=== PATIENT | female | born 1965 | race Caucasian/White ===

== ENCOUNTER 2019-06-27 01:23 | Day surgery (SDC) | payer OTHER, SELFPAY ==
[2019-06-20 15:46] VITALS: BMI 26.5
[2019-06-27 08:15] VITALS: BP 105/68; PULSE 76; RESP 16; TEMP 36.1; O2SAT 98
[2019-06-27] MEDS: LACTATED RINGERS 1,000 ML 150 ML IV CONT (08:20)
--- NOTE | 2019-06-27 08:57 | WPDANESEPPF ---
Anes - Initial Pre Proc Eval Procedure: Operation Date: 06/27/19 09:00 Proposed Procedures p Esophagogastroduodenoscopy & Screening Colonoscopy - Tommy Corral MD Date/Time: 06/27/19 08:57 Surgeon: Tommy Corral MD Pre Op Diagnosis: Neoplasm Screening/ Dysphagia Patient Data Age: 53 Gender: F Height: 5 ft 3 in Weight: 64.7 kg Last Vital Signs Temp 97.0 F L 06/27/19 08:15 Pulse 76 06/27/19 08:15 Resp 16 06/27/19 08:15 BP 105/68 06/27/19 08:15 Pulse Ox 98 06/27/19 08:15 Allergies Allergy/AdvReac Type Severity Reaction Status Date / Time No Known Allergies Allergy Unknown Verified 06/27/19 08:14 Home Medications Medication Instructions Recorded Confirmed Type PNV cmb#95-ferrous fumarate-FA 1 tablet PO DAILY 06/20/19 06/20/19 History [] Patient hx anesthesia problems: none Family hx anesthesia problems: none PMFSH Past Medical History Medical History (Updated 06/27/19 @ 08:56 by Dillon Brewer MD) Healthy adult Social History Social History (Updated 06/27/19 @ 08:57 by Dillon Brewer MD) Smoking status: Never smoker Alcohol intake: current Drinks per week: 7 Anes - Eval Final PreProcedure Day of Procedure 06/27/19 08:57 Patient weight: normal Heart: regular rate and rhythm Lungs: clear to auscultation Airway: Mallampati scale class 1 Neurological: alert and oriented Last oral intake: >/= 8 hours ASA classification: II Emergent: no Anesthetic plan: proceed Anesthesia type and monitoring: general GIVS and standard monitoring Informed Consent: The patient's anesthetic plan and its attendant risks and benefits were discussed with the patient/family/POA. Questions were solicited and answers provided to the satisfaction of the patient/family/POA.
[2019-06-27] MEDS: BENZOCAINE (*SP) 60 ML SPRAY CAN (HURRICAINE) 1 SPRAY MUCOUS MEM (09:09)
--- NOTE | 2019-06-27 09:31 | P.CONGI_ITS ---
Assessment and Plan Additional Plan This is a 53-year-old white female patient seen in evaluation at the request of Dr. Vicente. Operation has episodes of difficulty swallowing occurs almost weekly. She notices that for many years food will catch in her throat. Especially large pills. She denies any heartburn. She denies any bleeding. Her weight has remained stable. She has frequent episodes of gas and belching. Past medical history noncontributory. Currently on no medications. No known medical allergies. Family history reveals mother had lung cancer brother had lung cancer. There is no history of colon or rectal disease within the family. Physical exam reveals her to be alert. Oriented x3. HEENT exam unremarkable. Lungs are clear to auscultation and percussion. Heart is without murmur or extra sounds. Abdominal exam bowel sounds are present soft nontender with no hepatosplenomegaly. Digital external rectal exam is normal. Impression 1. Dysphagia. Etiology unclear. Somewhat suggestive of esophageal narrowing. Plan is for EGD. 2. Neoplasia screening. Plan is for colonoscopy because of her age. Plan is to proceed with both colonoscopy an EGD as stated. further recommendations will be given after endoscopy. GI Consult Note Consult date/time: 06/27/19 09:31 HPI: Leanne Rosa is a 53 year old female [facility] Past Medical History Medical History (Updated 06/27/19 @ 08:56 by Dillon Brewer MD) Healthy adult Social History Social History (Updated 06/27/19 @ 08:57 by Dillon Brewer MD) Smoking status: Never smoker Alcohol intake: current Drinks per week: 7 Meds Home Medications and Allergies Home Medications Medication Instructions Recorded Confirmed Type PNV cmb#95-ferrous fumarate-FA 1 tablet PO DAILY 06/20/19 06/20/19 History [] Allergies Allergy/AdvReac Type Severity Reaction Status Date / Time No Known Allergies Allergy Unknown Verified 06/27/19 08:14 Vital Signs Vital Signs - 24 hr 06/27/19 08:15 Temperature 36.1 C L Pulse Rate 76 Respiratory Rate 16 Blood Pressure 105/68 Pulse Oximetry 98
[2019-06-27 09:35] VITALS: BP 102/59; PULSE 74; RESP 16; O2SAT 98
[2019-06-27 09:45] VITALS: BP 111/71; PULSE 69; RESP 16; O2SAT 98
[2019-06-27 09:55] VITALS: BP 115/75; PULSE 65; RESP 16; O2SAT 98
== END 2019-06-27 10:20 | disposition home or self-care (01) ==
PROVIDERS: PCP Family Medicine; Visit Provider Internal Medicine Gastroenterology
PROC: 0DJ08ZZ Inspection of Upper Intestinal Tract, Via Natural or Artificial Opening Endoscopic (ICD-10-PCS; CPT 43235; principal; 2019-06-27 09:00)
DX: R13.10 Dysphagia, unspecified (principal); Z12.11 Encounter for screening for malignant neoplasm of colon; K64.8 Other hemorrhoids
CPT/HCPCS: 45378; 43450; 43235; J2704; J7120

== ENCOUNTER → 2020-04-01 13:01 | Outpatient (CLI) | payer OTHER, SELFPAY ==
--- NOTE | ~2020-04-01 | XR_ITS ---
XR lumbar spine 2-3V DATE: 04/01/2020 13:43 INDICATION: Lumbar back pain TECHNIQUE: Standing AP, lateral and coned lateral lumbosacral views COMPARISON: None FINDINGS: Mild dextro scoliosis of the thoracolumbar spine. The lumbar pedicles are intact. No fracture or bone destruction or spondylolisthesis. Lumbar and lumb osacral interspaces appear relatively well preserved. Moderate osteopenia. The sacroiliac joints appear normal. There is a fairly prominent amount of fecal material within the colon. Approximately 11.7 x 19 mm mot tled calcifications overlying the right midabdomen IMPRESSION: Mild scoliosis Moderate osteopenia. Reviewed, dictated and finalized at location B. AN OFFICER
--- NOTE | ~2020-04-01 | XR_ITS ---
XR_CERV2-3V_CR DATE: 04/01/2020 13:43 INDICATION: Neck pain TECHNIQUE: AP, open-mouth, odontoid, lateral and swimmer views COMPARISON: None FINDINGS: . C1 and C2 are normally aligned and the odontoid process is intact. There is minimal anterolisthesis and slight loss of disc space height at C4-5. Otherwise no fracture or dislocation, locked facet or prevertebral soft tissue swelling. IMPRESSION: Minimal anterolisthesis and slight loss of disc space height at C4-5 Reviewed, dictated and finalized at Location A. Reviewed, dictated and finalized at location B. 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
--- NOTE | ~2020-04-01 | XR_ITS ---
XR thoracic spine 2V DATE: 04/01/2020 13:43 INDICATION: Thoracic back pain TECHNIQUE: AP, lateral, swimmer views COMPARISON: 04/01/2020 cervical spine FINDINGS: Mild levoscoliosis of the thoracic spine. No fracture or dislocation or bone destruction. The thoracic pedicles are intact. No paraspinal soft tissue thickening. Thoracic interspaces appear intact. IMPRESSION: Mild levoscoliosis Reviewed, dictated and finalized at location B. AGE WORKER IMPRESSION: Mild levoscoliosis
== END ==
PROVIDERS: PCP Family Medicine; Visit Provider Chiropractor
DX: M54.2 Cervicalgia (principal); M54.6 Pain in thoracic spine; M54.5 Low back pain; M85.88 Other specified disorders of bone density and structure, other site; M41.86 Other forms of scoliosis, lumbar region; M43.12 Spondylolisthesis, cervical region
CPT/HCPCS: 72040; 72070; 72100

== ENCOUNTER → 2020-04-22 07:53 | Outpatient (CLI) | payer OTHER, SELFPAY ==
--- NOTE | ~2020-04-22 | US_ITS ---
US abdomen complete DATE: 04/22/2020 08:23 INDICATION: Abdominal pain TECHNIQUE: Real-time imaging of the complete abdomen, Doppler analysis COMPARISON: None FINDINGS: There are multiple mobile filling defects of the gallbladder with shadowing, consistent wit h cholelithiasis. Gallbladder wall thickness is within normal range. No pericholecystic fluid collect ion is detected. Negative sonographic Aaron's sign. The common bile duct measures 3.8 mm, within normal limits. No hepatic or pancreatic space-occupying mass lesion is detected. Normal hepatopedal portal venous fl ow direction. Normal splenic size. The right kidney is not visualized. The left kidney measures 12.2 cm. No left renal mass lesion or hy dronephrosis. The inferior vena cava is unremarkable. Normal caliber of the abdominal aorta. IMPRESSION: Cholelithiasis. No right kidney is detected. Reviewed, dictated and finalized at Location A. Reviewed, dictated and finalized at location A. FINISHER
== END ==
PROVIDERS: PCP Family Medicine; Visit Provider Family Medicine
DX: R10.9 Unspecified abdominal pain (principal); N20.0 Calculus of kidney
CPT/HCPCS: 76700

== ENCOUNTER 2020-05-12 16:38 | Outpatient (CLI) | payer OTHER, SELFPAY ==
--- NOTE | ~2020-05-12 | US_ITS ---
EXAMINATION: US venous doppler LE RT DATE: 05/12/2020 17:17 INDICATION: Right lower limb pain TECHNIQUE: Mcclelland scale images without and with compression and Doppler images of the right lower extre mity veins were obtained. COMPARISON: None FINDINGS: The right common femoral vein, profunda femoral vein, femoral vein, popliteal vein, peronea l trunk, posterior tibial veins, and greater saphenous vein are patent. There is thrombosis of the le sser saphenous and gastrocnemius veins, superficial veins. IMPRESSION: 1. Patent right lower extremity veins. No evidence of deep venous thrombosis. Superficial venous thro mbosis of the lesser saphenous and gastrocnemius veins. Reviewed, dictated and finalized at location A. ER LAP TENDER IMPRESSION: 1. Patent right lower extremity veins. No evidence of deep venous thrombosis. S uperficial venous thrombosis of the lesser saphenous and gastrocnemius veins.
== END 2020-05-12 16:39 | disposition home or self-care (01) ==
LOC: ANHIMG 16:46
PROVIDERS: PCP Family Medicine; Visit Provider Family Medicine
DX: M79.661 Pain in right lower leg (principal); I82.811 Embolism and thrombosis of superficial veins of right lower extremity; I82.461 Acute embolism and thrombosis of right calf muscular vein
CPT/HCPCS: 93971

== ENCOUNTER → 2020-07-28 13:24 | Outpatient (CLI) | payer OTHER, SELFPAY ==
--- NOTE | ~2020-07-28 | DEXA_ITS ---
Bone Density Report Name: Leanne Rosa Age: 54 Sex: Female Ethnicity: White Date of : 1965 Indication: postmenopausal; screening for osteoporosis; Referring Provider: DUYEN CORMIER Study: Bone densitometry was performed. Exam Date: July 28, 2020 Accession number: [id number] Bone Density: Region BMD T-score Z-score Classification AP Spine (L1-L4) 0.991 -0.5 0.6 Normal Femoral Neck (Left) 0.710 -1.3 -0.2 Osteopenia Total Hip (Left) 0.893 -0.4 0.3 Normal Femoral Neck (Right) 0.634 -1.9 -0.8 Osteopenia Total Hip (Right) 0.822 -1.0 -0.3 Normal Total Hip Mean 0.858 -0.7 0.0 Normal World Health Organization criteria for BMD impression classify patients as: Normal (T-score at or above -1.0), Osteopenia (T-score between -1.0 and -2.5), or Osteoporosis (T-score at or below -2.5). 10-year Fracture Risk(1): Major Osteoporotic Fracture 9.6% Hip Fracture 1.4% Reported Risk Factors: [place] (), Neck BMD=0.634, BMI=26.3, alcohol use (1) FRAX(R) Version 3.08. Fracture probability calculated for an untreated patient. Fracture probability may be lower if the patient has received treatment. Clinical Information Provided by Patient: Has 3 or more alcoholic drinks per day Patient maximum height was 62.5 Menopause Age: 52 No regular weight bearing exercise Does not regularly consume dairy products Drinks caffeinated beverages Onset of menses at age 15.5 Number of children 2 Impression: The patient has low bone mass, based on the Right Femoral Neck T-score. The patient has an estimated ten-year risk of hip fracture of 1.4% and an estimated ten-year risk of major fracture of 9.6%, based on the WHO FRAX algorithm. The patient has risk factors, including: excessive alcohol use. Discussion: BONE DENSITY IS LOW AT ONE OR MORE SKELETAL SITES. This patient's lowest T-score is low at one or more skeletal sites. It meets the World Health Organization's (WHO) criteria for ?low bone mass? (T-score between -1.0 and -2.5). The patient's 10-year risk of fracture as calculated by FRAX is less than the threshold where pharmacological therapy is recommended by the National Osteoporosis Foundation (NOF). However, all treatment decisions require clinical judgment and consideration of individual patient factors, including patient preferences, comorbidities, previous drug use, risk factors not captured in the FRAX model (e.g., frailty, falls, vitamin D deficiency, increased bone turnover, interval significant decline in bone density) and possible under or overestimation of fracture risk by FRAX. The patient should follow a healthful lifestyle (good nutrition with adequate calcium and vitamin D, and appropriate weight-bearing exercise). Follow-Up: Consider repeating this study in 2 to 3 years to reassess this patie
--- NOTE | ~2020-07-28 | MM_ITS ---
EXAMINATION: MM screening [facility] BI w layton HISTORY: Screening TECHNIQUE: Craniocaudal and mediolateral oblique 3-D tomosynthesis images were obtained and synthetic 2-D images were generated. CAD analysis was submitted and interpreted. COMPARISON: 12/09/2010 BREAST PARENCHYMAL COMPOSITION: There are scattered areas of fibroglandular density. FINDINGS: There is no mammographic evidence for malignancy in the right breast. The left breast conta ins a mass in the upper outer quadrant measuring 7 mm, middle third. IMPRESSION: 1. Left breast mass, upper outer quadrant. 2. Additional mammographic views and possible breast ultrasound are recommended. BI-RADS Category 0: Incomplete: Needs additional imaging evaluation. Reviewed, dictated and finalized at location A. IMPRESSION: 1. Left breast mass, upper outer quadrant. 2. Additional mammographic views and possible breast ultrasound are recommended . BI-RADS Category 0: Incomplete: Needs additional imaging evaluation.
== END ==
PROVIDERS: PCP Internal Medicine; Visit Provider Internal Medicine
DX: Z12.31 Encounter for screening mammogram for malignant neoplasm of breast (principal); Z78.0 Asymptomatic menopausal state; R92.8 Other abnormal and inconclusive findings on diagnostic imaging of breast; M85.852 Other specified disorders of bone density and structure, left thigh; M85.851 Other specified disorders of bone density and structure, right thigh
CPT/HCPCS: 77063; 77067; 77080

== ENCOUNTER → 2020-09-03 08:12 | Outpatient (CLI) | payer OTHER, SELFPAY ==
--- NOTE | ~2020-09-03 | MMUS_ITS ---
EXAMINATION: MM diagnostic junior LT w layton, US breast LT limited HISTORY: Left breast mass on screening mammogram TECHNIQUE: Additional 3-D tomosynthesis images of the left breast were performed and synthetic 2-D im ages were generated. CAD analysis was submitted and interpreted. High resolution limited left breast ultrasound was performed. COMPARISON: 07/28/2020, 07/12/2010 11/01/2007 BREAST PARENCHYMAL COMPOSITION: There are scattered areas of fibroglandular density. FINDINGS: MAMMOGRAPHIC FINDINGS: There is a 7 mm round, obscured, high density mass in the middle third of the upper outer quadrant of the breast at the 2:00 location 9 cm from the nipple. ULTRASOUND: There is a 9 mm oval, circumscribed, parallel, hypoechoic mass with posterior acoustic enhancement an d no internal vascularity at the 1:00 location 6 cm from the nipple. A 3 mm hypoechoic mass is presen t at the 2:00 location 4 cm from the nipple. IMPRESSION: 1. Indeterminate mass at the 1:00 location 6 cm from the nipple. Ultrasound guided biopsy is recommen ded. 2. Possible small cyst at the 2:00 location 4 cm from the nipple. Targeted left breast ultrasound in six months is recommended. BI-RADS category 4, suspicious findings. Reviewed, dictated and finalized at location A. IMPRESSION: 1. Indeterminate mass at the 1:00 location 6 cm from the nipple. Ultrasound stacie ded biopsy is recommended. 2. Possible small cyst at the 2:00 location 4 cm from the nipple. Targeted left breast ultrasound in six months is recommended. BI-RADS category 4, suspicious findings.
== END ==
PROVIDERS: PCP Internal Medicine; Visit Provider Internal Medicine
DX: N63.0 Unspecified lump in unspecified breast (principal); R92.8 Other abnormal and inconclusive findings on diagnostic imaging of breast
CPT/HCPCS: 76642; 77061; 77065; G0279

== ENCOUNTER 2020-09-03 08:59 | Outpatient (CLI) | payer OTHER, SELFPAY ==
[2020-09-03 09:21] LABS: Basophils Absolute Auto 0.1 K/mm3 (0.0-0.1); Basophils Percent Auto 1.2 % (0.2-1.2); Eosinophils Absolute Auto 0.2 K/mm3 (0-0.3); Eosinophils Percent Auto 4.7 % (0-4.4); Hematocrit 40.7 % (37.0-47.0); Hemoglobin 13.1 g/dL (12.0-15.0); Immature Granulocyte Absolute 0.02 K/mm3 (0.00-0.031); Immature Granulocyte Percent A 0.4 % (0-0.5); Lymphocytes Absolute Auto 1.65 K/mm3 (0.9-3.2); Lymphocytes Percent Auto 32.1 % (18.3-44.2); Mean Corpuscular HGB Conc 32.2 g/dl (32-36); Mean Corpuscular Hemoglobin 30.2 pg (26-34); Mean Corpuscular Volume 93.8 fl (80-100); Monocytes Absolute Auto 0.3 K/mm3 (0.1-0.6); Neutrophils Absolute Auto 2.9 K/mm3 (1.3-6.7); Neutrophils Percent Auto 55.6 % (45.5-73.1); Platelet Count Result 251 k/mm3 (150-375); Red Blood Count 4.34 M/mm3 (4.2-5.4); White Blood Count 5.1 K/mm3 (4.5-10.0)
[2020-09-03 09:24] LABS: Add Urine Microscopic? NO; Appearance Urine Clear (Clear); Bilirubin Urine Negative (Negative); Blood Urine Negative (Negative); Color Urine Yellow (Yellow); Glucose Urine UA Negative (Negative); Ketones Urine Negative (Negative); Leukocyte Esterase Ur Negative LEU/UL (NEGATIVE); Nitrate Urine Negative (Negative); Protein Urine Negative (Negative); Specific Grav Ur 1.024 (1.001-1.035); Urobilinogen Urine Negative mg/dL (<2.0)
[2020-09-03 09:39] LABS: Alanine Aminotransferase 11 U/L (4-35); Albumin Level 4.3 g/dL (3.5-5.1); Alkaline Phosphatase 54 U/L (38-126); Anion Gap 0 mmol/L (8-16); Aspartate Amino Transferase 27 U/L (14-36); Bilirubin,Total 0.4 mg/dL (0.2-1.3); Blood Urea Nitrogen 17 mg/dL (7-17); Calcium 8.9 mg/dL (8.4-10.2); Carbon Dioxide 32 mmol/L (22-30); Chloride 108 mmol/L (98-107); Cholesterol 189 mg/dL (0-200); Estimated Glomerular Filt Rate > 60; Glucose 88 mg/dL (65-105); HDL Direct 87 mg/dL; Sodium 140 mmol/L (137-145); Triglycerides 46 mg/dL (<150)
[2020-09-03 09:50] LABS: LDL Cholesterol Direct 70 mg/dL
[2020-09-03 10:13] LABS: Vitamin D 25 Hydroxy 26.2 ng/mL
== END 2020-09-03 09:00 | disposition home or self-care (01) ==
LOC: ANHLAB 09:02
PROVIDERS: PCP Internal Medicine; Visit Provider Internal Medicine
DX: E55.9 Vitamin D deficiency, unspecified (principal); E78.2 Mixed hyperlipidemia; F32.9 Major depressive disorder, single episode, unspecified; F41.9 Anxiety disorder, unspecified; Z78.0 Asymptomatic menopausal state; Z79.899 Other long term (current) drug therapy
CPT/HCPCS: 36415; 80053; 80061; 81003; 82306; 84443; 85025

== ENCOUNTER 2020-09-12 08:17 | Emergency (ER) | payer OTHER, SELFPAY ==
--- NOTE | 2020-09-12 08:21 | ED.GENADULT ---
HPI - General Adult General Chief complaint: Skin/Abscess/Foreign Body Stated complaint: Rash Time Seen by Provider: 09/12/20 08:21 Source: patient Mode of arrival: ambulatory Limitations: no limitations History of Present Illness HPI narrative: 55-year-old female patient presents to the [facility] with complaints of a rash to bilateral arms and right flank that started this morning. Patient states yesterday she was sweeping off the porch and did pull couple weeds. Patient states she woke up today with a rash and states it is itchy. Denies any pain to the area. Denies putting anything on the rash. Denies any chest pain, shortness of breath, swelling or trouble swallowing. Related Data Home Medications Medication Instructions Recorded Confirmed PNV cmb#95-ferrous fumarate-FA 1 tablet PO DAILY 06/20/19 09/12/20 [] aspirin 325 mg tablet 325 mg PO DAILY 06/01/20 09/12/20 multivitamin 1 tablet PO DAILY 06/01/20 09/12/20 Allergies Allergy/AdvReac Type Severity Reaction Status Date / Time No Known Allergies Allergy Unknown Verified 09/12/20 08:24 Review of Systems Review of Systems: Narrative: CONSTITUTIONAL: Denies fever, chills, or sweats. EYES: Denies visual changes, redness, or discharge. ENT: Denies rhinorrhea, congestion, sore throat, or otalgia. CARDIOVASCULAR: Denies chest pain, palpitations, or edema. RESPIRATORY: Denies cough or dyspnea. GASTROINTESTINAL: Denies abdominal pain, nausea, vomiting, or diarrhea. GENITOURINARY: Denies dysuria or hematuria. SKIN: Positive rash with itching to bilateral arms and right flank since this morning MUSCULOSKELETAL: Denies back pain, joint pain, or myalgia. NEUROLOGIC: Denies headache, numbness, or weakness. PSYCHIATRIC: Denies anxiety or depression. [facility] Past Medical History Medical History Healthy adult Social History Social History Smoking status: Never smoker Alcohol intake: current Drinks per week: 7 Comments At the time of my signature I agree with nursing past medical history, surgical, social, and family history. There is no relevant family history pertinent to the presenting complaint. Exam Narrative: Exam Narrative: GENERAL: Well-appearing, well-nourished, and in no acute distress. HEAD: Normocephalic, atraumatic. EYES: PERRLA and EOMI. ENT: Nares clear, no rhinorrhea or epistaxis. Mucous membranes moist. NECK: Supple. No lymphadenopathy CHEST: Clear to auscultation. No respiratory distress. HEART: Regular rate and rhythm. No murmur heard. Normal peripheral pulses. ABDOMEN: Soft, nontender, nondistended, normal active bowel sounds. EXTREMITIES: Normal range of motion. No edema. SKIN: Patient has a rash to bilateral arms and right flank there appears to be a small erythemic papules. No open wounds or drainage at this time. NEURO: No focal deficits. Alert and oriented x3. Course Vital Signs Vital signs: Vital Signs Temperature 36.4 C L 09/12/20 08:26 Pulse Rate 65 09/12/20 08:26 Respiratory Rate 16 09/12/20 08:26 Blood Pressure 124/70 09/12/20 08:26 Pulse Oximetry 100 09/12/20 08:26 Temperature 36.4 C L 09/12/20 08:26 Pulse Rate 65 09/12/20 08:26 Respiratory Rate 16 09/12/20 08:26 Blood Pressure 124/70 09/12/20 08:26 Pulse Oximetry 100 09/12/20 08:26 Vital signs reviewed Medical Decision Making Differential Diagnosis Differential Diagnosis: Differential diagnosis: Contact dermatitis, poison catarina, poison sumac, psoriasis, eczema, allergic reaction, drug reaction, scabies, tinea syphilis, lung disease, viral exanthema, pityriasis, erythema multiforme. Discussed with patient that it does appear that she has some type of contact dermatitis. We will go ahead and discharge her home with a steroid cream to help with the itching also advised her to take some type of antihistamine [id number]
[2020-09-12 08:26] VITALS: BP 124/70; PULSE 65; RESP 16; TEMP 36.4; O2SAT 100
== END 2020-09-12 08:53 | disposition home or self-care (01) ==
PROVIDERS: Emergency Provider Nurse Practitioner Family; PCP Internal Medicine
DX: L25.9 Unspecified contact dermatitis, unspecified cause (principal); Z79.82 Long term (current) use of aspirin
CPT/HCPCS: 99213; G0463

== ENCOUNTER 2021-09-02 07:37 | Outpatient (CLI) | payer OTHER, SELFPAY ==
[2021-09-02 08:07] LABS: Basophils Absolute Auto 0.1 K/mm3 (0.0-0.1); Basophils Percent Auto 1.4 % (0.2-1.2); Eosinophils Absolute Auto 0.3 K/mm3 (0-0.3); Eosinophils Percent Auto 4.4 % (0-4.4); Hematocrit 42.1 % (37.0-47.0); Hemoglobin 13.5 g/dL (12.0-15.0); Immature Granulocyte Absolute 0.02 K/mm3 (0.00-0.031); Immature Granulocyte Percent A 0.3 % (0-0.5); Lymphocytes Absolute Auto 2.19 K/mm3 (0.9-3.2); Lymphocytes Percent Auto 37.1 % (18.3-44.2); Mean Corpuscular HGB Conc 32.1 g/dl (32-36); Mean Corpuscular Hemoglobin 30.3 pg (26-34); Mean Corpuscular Volume 94.4 fl (80-100); Mean Platelet Volume 9.3 fl (7.4-10.4); Monocytes Absolute Auto 0.3 K/mm3 (0.1-0.6); Monocytes Percent Auto 5.8 % (2.6-8.5); Platelet Count Result 233 k/mm3 (150-375); Red Blood Count 4.46 M/mm3 (4.2-5.4); Red Cell Distribution Width 13.4 % (11.5-14.5); White Blood Count 5.9 K/mm3 (4.5-10.0)
[2021-09-02 08:21] LABS: Alanine Aminotransferase 15 U/L (4-35); Albumin Level 4.4 g/dL (3.5-5.1); Alkaline Phosphatase 43 U/L (38-126); Anion Gap 5 mmol/L (8-16); Aspartate Amino Transferase 30 U/L (14-36); Bilirubin,Total 0.2 mg/dL (0.2-1.3); Blood Urea Nitrogen 14 mg/dL (7-17); Calcium 9.3 mg/dL (8.4-10.2); Carbon Dioxide 28 mmol/L (22-30); Chloride 107 mmol/L (98-107); Cholesterol 220 mg/dL (0-200); Estimated Glomerular Filt Rate > 60; Glucose 101 mg/dL (65-110); HDL Direct 77 mg/dL; Potassium 5.2 mmol/L (3.4-5.0); Sodium 140 mmol/L (137-145); Triglycerides 201 mg/dL (<150)
[2021-09-02 08:32] LABS: LDL Cholesterol Direct 80 mg/dL
[2021-09-02 09:01] LABS: Vitamin D 25 Hydroxy 42.4 ng/mL
== END 2021-09-02 07:38 | disposition home or self-care (01) ==
LOC: ANHLAB 07:39
PROVIDERS: PCP Internal Medicine; Visit Provider Internal Medicine
DX: E55.9 Vitamin D deficiency, unspecified (principal); F41.9 Anxiety disorder, unspecified; F32.9 Major depressive disorder, single episode, unspecified; Z00.00 Encounter for general adult medical examination without abnormal findings
CPT/HCPCS: 36415; 80053; 80061; 82306; 84443; 85025

== ENCOUNTER 2022-11-03 08:32 | Outpatient (CLI) | payer OTHER, SELFPAY ==
[2022-11-03 10:53] LABS: Alanine Aminotransferase 22 U/L (6-35); Albumin Level 4.4 g/dL (3.5-5.1); Alkaline Phosphatase 40 U/L (38-126); Anion Gap 2 mmol/L (8-16); Aspartate Amino Transferase 31 U/L (14-36); Bilirubin,Total 0.6 mg/dL (0.2-1.3); Blood Urea Nitrogen 15 mg/dL (7-17); Calcium 8.9 mg/dL (8.4-10.2); Carbon Dioxide 31 mmol/L (22-30); Chloride 108 mmol/L (98-107); Cholesterol 225 mg/dL (0-200); Estimated Glomerular Filt Rate > 60; Glucose 84 mg/dL (65-110); HDL Direct 90 mg/dL; Potassium 4.4 mmol/L (3.4-5.0); Sodium 141 mmol/L (137-145); Triglycerides 55 mg/dL (<150)
[2022-11-03 11:03] LABS: LDL Cholesterol Direct 98 mg/dL
[2022-11-03 13:00] LABS: Vitamin D 25 Hydroxy 42.5 ng/mL
== END 2022-11-03 08:33 | disposition home or self-care (01) ==
PROVIDERS: Visit Provider Nurse Practitioner
DX: E78.5 Hyperlipidemia, unspecified (principal); E55.9 Vitamin D deficiency, unspecified; E78.2 Mixed hyperlipidemia; Z79.899 Other long term (current) drug therapy
CPT/HCPCS: 36415; 80053; 80061; 82306

== ENCOUNTER 2025-01-07 13:35 | Outpatient (CLI) | payer OTHER, SELFPAY ==
--- OUTSIDE RECORDS SUMMARY | 2025-01-07 13:40 | XMS_ITS | Encounter Summary ---
Author Organization [facility] Address [address] [place] [address] Care Team Providers Care Kitchen Cleaner Name Role Phone Unavailable Primary Care Provider Unavailabl e Encounter Details Date Type Department Care Team (Latest Contact Info) Description 12/26/2006 Outpatient Historical [facility] Frankie Vicente MD [address] [place] [phone] Other General Counseling and Advice for Contraceptive Management (Primary Dx) Social History Tobacco Use Types Packs/Day Years Used Date Smoking Tobacco: Never Assessed Comments Unknown Sex and Gender Information Value Date Recorded Sex Assigned at Not on file Legal Sex Female 5:01 AM 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
--- OUTSIDE RECORDS SUMMARY | 2025-01-07 13:40 | XMS_ITS | Clinical Summary ---
Author Organization [facility] Address [address] 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 Gender Identity Not on file Sexual Orientation Not on file Plan of Treatment Health Maintenance Due Date Last Done Comments DTAP/TDAP/TD VACCINES (1 - Tdap) 08/16/1983 HPV/Cotest (21-29) 1985 CERVICAL CANCER SCREENING 1994 HPV/Cotest (30-65) 1994 PAP SMEAR 1994 BREAST CANCER SCREENING 2004 COLORECTAL SCREENING 2009 Colorectal Cancer Screening 2009 FIT-DNA Q 3 years 2009 FIT/FOBT Q 1 year 2009 Flex Sig/CT Colonography Q 5 years 2009 ZOSTER VACCINE (1 of 2) 2014 INFLUENZA VACCINE (#1) 2024 RSV VACCINE (60+ or ) (1 - 1-dose 75+ series) 08/16/2039 HEPATITIS B VACCINES Aged Out No long er eligible based on patient's age to complete this topic
--- OUTSIDE RECORDS SUMMARY | 2025-01-07 13:40 | XMS_ITS | Encounter Summary ---
Author Organization [employer] [facility] Address 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
--- OUTSIDE RECORDS SUMMARY | 2025-01-07 13:40 | XMS_ITS | Clinical Summary ---
Author Organization [facility] Address [address] [place] [id number] Care Team Providers Care Maintenance And Custodian Supervisor Name Role Phone Seng Estrella DO Primary Care Provider [phone] Allergies No known active allergies Medications multivit-min/fe rrous fumarate (MULTI VITAMIN ORAL) Take by mouth Active ergocalciferol, vitamin D2, 50 mcg (2,000 unit) tablet Take by mouth Act abhishek vitamin K2 40 mcg tablet Take by mouth Activ e ascorbic acid (ascorbic acid with ramon hips) 500 mg tablet,chewable Acti ve fluticasone propionate (FLONASE) 50 mcg/actuation nasal spray Administer 2 sprays into each nostril daily 16 g 6 4 Active Active Problems Problem Noted Date Diagnosed Date Chronic cough 11/01/2023 Assessment & Plan (12/29/2023 12:33 PM CDT): This cough continues and she does not have significant problems with sinusitis. Again I think the cough is likely due to reflux more than anything else. She complains of lot of throat clearing in that tends to bother her every night. We talked about allergy testing given her sinus CT scan was negative. She would like to pursue that, Assessment & Plan (11/01/2023 9:21 PM CDT): This could be reflux related and is pretty mild. Considering her renal problems recommended conservative management including dietary management. Epistaxis 11/01/2023 Assessment & Plan (12/29/2023 12:32 PM CDT): Possibly due to dryness but seems to have cleared. We will continue to observe. Assessment & Plan (11/01/2023 9:22 PM CDT): She does have a small vascular lesion in the left side of her nose on the nasal septum. I am recommending conservative management considering she has not had a nosebleed quite awhile. She understands. Phlegm in throat 11/01/2023 Assessment & Plan (12/29/2023 12:34 PM CDT): We are going to pursue allergy testing to see if that may be causing some of this. I also still think that this is probably due to reflux disease. Given her renal status I am not sure I would recommend aggressively treating for reflux and she understands that. We have already talked about it. There may not be much that can be done otherwise. Assessment & Plan (11/01/2023 9:22 PM CDT): This also is probably due to reflux disease. Again I am recommending conservative management. Deviated nasal septum 11/01/2023 Assessment & Plan (12/29/2023 12:35 PM CDT): She has some dryness involving the septum and that might be causing a crust which she coughs up. We talked about that also. I am not recommending any aggressive treatment otherwise. Use moisturization. She understands. Assessment & Plan (11/01/2023 9:21 PM CDT): She does have significant deviation of her nasal septum. I wonder if she may be coughing up across the may be resulting from this nasal septal deformity. I recommended that she try using NeilMed rinse on a regular basis. Let us see how things go during that . Of time and I would like to have her follow-up in about 1 month. If she has continued problems I may recommend a sinus CT scan. Abnormal mammogram of left breast 09/29/2020 Surgical History Surgery Date Site/Laterality Comments BREAST BIOPSY 09/28/2020 Left OTHER SURGICAL HISTORY Blood clot Medical History Medical History Date Comments Depression Allergic rhinitis Anxiety History of blood clots Hepatitis History of kidney problems Nosebleed Cough Deviated septum Family History Medical History Relation Name Comments Lung cancer Brother Lung cancer Mother Relation Name Status Comments Brother Mother Social History Tobacco Use Types Packs/Day Years Used Date Smoking Tobacco: Never Smokeless Tobacco: Never Tobacco Cessation:Counseling Given: Not Answered Comments Unknown Sex and Gender Information Value Date Recorded Sex Assigned at Not on file Legal Sex Female 1:38 AM FIRER AUTOMATIC STOKER Gender Identity Not on file Sexual Orientation Not on file Obstetrics History Last Filed Vital Signs Vital Sign Reading Time Taken Comments Blood Pressure 126/66 06/10/2024 10:05 AM FIRER AUTOMATIC STOKER Pulse 73 06/10/2024 10:05 AM FIRER AUTOMATIC STOKER Temperature 36.8 C (98.2 F) 06/10/2024 10:05 AM FIRER AUTOMATIC STOKER Respiratory Rate 18 06/10/2024 10:05 AM FIRER AUTOMATIC STOKER Oxygen Saturation 99% 06/10/2024 10:05 AM FIRER AUTOMATIC STOKER Inhaled Oxygen Concentration - - Weight 70 kg (154 lb 6.4 oz) 06/10/2024 10:05 AM FIRER AUTOMATIC STOKER Height 157.5 cm (5' 2) 06/10/2024 10:05 AM FIRER AUTOMATIC STOKER Body Mass Index 28.24 06/10/2024 10:05 AM FIRER AUTOMATIC STOKER Plan of Treatment Health Maintenance Due Date Last Done Comments Cervical Cancer Screening 1964 Colon Cancer Screening-Colonoscopy 1964 Depression Screening 1964 Hepatitis C Screening 1964 DTaP/Tdap/Td Vaccine (1 - Tdap) 08/16/1975 Hepatitis B Screening 1982 Regular Well Visit/Exam 18-64 1982 Zoster Vaccine (1 of 2) 2014 Influenza Vaccine (#1) 2025 Breast Cancer Screening-Mammogram 03/04/2025 03/04/2024, 01/05/2023, 10/25/2021 Pneumococcal vaccine <65 Aged Out No longer eligible based on patient's age to complete this topic Procedures Procedure Name Priority Date/Time Associated Diagnosis Comments SCREENING MAMMOGRAM BILATERAL W TYRONE Schedule Routine, Read Routine (OP Routine) 03/04/2024 12:28 PM CDT Screening mammogram, encounter for from Last 3 Months or Most Recently Relevant to Health Maintenance Results * Screening Mammogram Bilateral W [place] (03/04/2024 12:28 PM CDT) Anatomical Region Laterality Modality Breast Bilateral Mammography Narrative 03/05/2024 12:07 PM CDT Mammogram Technique: Bilateral Digital Breast Tomosynthesis, Bilateral C-view 2D Screening mammogram. Views obtained: bilateral craniocaudal and bilateral mediolateral oblique. Computer Aided Detection was performed. Mammogram Findings: The present examination has been compared to prior imaging studies performed at [facility] on 08/07/2006, 10/25/2021 and 01/05/2023. There are scattered areas of fibroglandular density. There is no suspicious abnormality in either breast. Impression: There is no mammographic evidence of malignancy. Annual screening mammography is recommended. OVERALL FINAL ASSESSMENT: BI-RADS CATEGORY 1: Negative. Procedure Note Brittany Kim MD - 03/05/2024 Mammogram Technique: Bilateral Digital Breast Tomosynthesis, Bilateral C-view 2D Screening mammogram. Views obtained: bilateral craniocaudal and bilateral mediolateral oblique. Computer Aided Detection was performed. Mammogram Findings: The present examination has been compared to prior imaging studies performed at [facility] on 08/07/2006, 10/25/2021 and 01/05/2023. There are scattered areas of fibroglandular density. There is no suspicious abnormality in either breast. Impression: There is no mammographic evidence of malignancy. Annual screening mammography is recommended. OVERALL FINAL ASSESSMENT: BI-RADS CATEGORY 1: Negative. us Self Screening Mammogram IMG MAMMO PROCEDURES Fi nal Result from Last 3 Months or Most Recently Relevant to Health [place] [address] [employer] [facility] Care Teams Maintenance And Custodian Supervisor Relationship Specialty Start Date End Date Seng Estrella DO PCP - General Internal Medicine 11/23/22
--- OUTSIDE RECORDS SUMMARY | 2025-01-07 13:40 | XMS_ITS | Encounter Summary ---
Author Organization [email or web address] Address [address] [place] [address] Care Team Providers Care Fiberglass Finisher Name Role Phone Unavailable Primary Care Provider Unavailabl e Encounter Details Date Type Department Care Team (Latest Contact Info) Description 05/31/2007 Outpatient Historical [facility] Frankie Vicente MD [address] [place] [phone] Nat[address] Fam [address]n-Avoid Preg Social History Tobacco Use Types Packs/Day Years Used Date Smoking Tobacco: Never Assessed Comments Unknown Sex and Gender Information Value Date Recorded Sex Assigned at Not on file Legal Sex Female 5:01 AM SAP PROJECT MANAGER Gender Identity Not on file Sexual Orientation Not on file documented as of this encounter Plan of Treatment Not on file documented as of this encounter Visit Diagnoses Diagnosis Counseling and instruction in natural family planning to avoid documented in this encounter
--- OUTSIDE RECORDS SUMMARY | 2025-01-07 13:40 | XMS_ITS | Encounter Summary ---
Author Organization [email or web address] [facility] Address [address] [place] [address] Care Team Providers Care Pelt Inspector Name Role Phone Unavailable Primary Care Provider Unavailabl e Encounter Details Date Type Department Care Team (Late st Contact Info) Description 01/27/2007 Outpatient [facility] Frankie Vicente MD [address] [place] [id number] Social History Tobacco Use Types Packs/Day Years Used Date Smoking Tobacco: Never Assessed Comments Unknown Sex and Gender Information Value Date Recorded Sex Assigned at Not on file Legal Sex Female 5:01 AM SENIOR HEALTH EDUCATOR Gender Identity Not on file Sexual Orientation Not on file documented as of this encounter Plan of Treatment Not on file documented as of this encounter Visit Diagnoses Not on filedocumented in this encounter
--- OUTSIDE RECORDS SUMMARY | 2025-01-07 13:40 | XMS_ITS | Encounter Summary ---
Author Organization [facility] Address [address] [place] [address] Care Team Providers Care Insulation Board Coater Operator Name Role Phone Unavailable Primary Care Provider Unavailabl e Encounter Details Date Type Department Care Team (Latest Contact Info) Description 02/27/2007 Outpatient Historical [facility] Frankie Vicente MD [address] [place] [phone] Other General Counseling and Advice for Contraceptive Management (Primary Dx) Social History Tobacco Use Types Packs/Day Years Used Date Smoking Tobacco: Never Assessed Comments Unknown Sex and Gender Information Value Date Recorded Sex Assigned at Not on file Legal Sex Female 5:01 AM DATA ANALYTICS SPECIALIST Gender Identity Not on file Sexual Orientation Not on file documented as of this encounter Plan of Treatment Not on file documented as of this encounter Visit Diagnoses Diagnosis Other general counseling and advice for contraceptive management- Primary documented in this encounter
[2025-01-07 14:16] LABS: Hematocrit 40.1 % (37.0-47.0); Hemoglobin 12.9 g/dL (12.0-15.0); Mean Corpuscular HGB Conc 32.2 g/dl (32-36); Mean Corpuscular Hemoglobin 29.0 pg (26-34); Mean Corpuscular Volume 90.1 fl (80-100); Platelet Count Result 244 k/mm3 (150-375); Red Blood Count 4.45 M/mm3 (4.2-5.4); White Blood Count 7.0 K/mm3 (4.5-10.0)
[2025-01-07 14:29] LABS: Alanine Aminotransferase 13 U/L (6-35); Albumin Level 4.6 g/dL (3.5-5.1); Alkaline Phosphatase 46 U/L (38-126); Anion Gap 9 mmol/L (4-12); Aspartate Amino Transferase 27 U/L (14-36); Bilirubin,Total 0.5 mg/dL (0.2-1.3); Blood Urea Nitrogen 17 mg/dL (7-17); Calcium 9.3 mg/dL (8.4-10.2); Carbon Dioxide 26 mmol/L (22-30); Chloride 105 mmol/L (98-107); Cholesterol 218 mg/dL (0-200); Estimated Glomerular Filt Rate > 60; Glucose 104 mg/dL (65-110); HDL Direct 83 mg/dL; Potassium 4.1 mmol/L (3.4-5.0); Sodium 140 mmol/L (137-145); Total Protein 7.9 g/dL (6.3-8.2); Triglycerides 115 mg/dL (<150)
[2025-01-07 15:05] LABS: Thyroid Stimulating Hormone 1.390 uIU/mL (0.465-4.680)
== END 2025-01-07 13:36 | disposition home or self-care (01) ==
LOC: ANHLAB 13:37
PROVIDERS: PCP Internal Medicine; Visit Provider Nurse Practitioner
DX: Z00.00 Encounter for general adult medical examination without abnormal findings (principal); E55.9 Vitamin D deficiency, unspecified
CPT/HCPCS: 36415; 80053; 80061; 82306; 84443; 85027

== ENCOUNTER 2025-04-22 13:31 | Outpatient (CLI) | payer OTHER, SELFPAY ==
[2025-04-22 13:58] LABS: Add Urine Microscopic? YES; Appearance Urine Cloudy (Clear); Glucose Urine UA Negative (Negative); Leukocyte Esterase Ur 3+ LEU/UL (Negative); Nitrate Urine Negative (Negative); Non Pathogenic Casts 0-2; Specific Grav Ur 1.015 (1.001-1.035)
== END 2025-04-22 13:32 | disposition home or self-care (01) ==
LOC: ANHLAB 13:32
PROVIDERS: PCP Internal Medicine; Visit Provider Internal Medicine
DX: R30.0 Dysuria (principal)
CPT/HCPCS: 81001; 87086; 87186